=== PATIENT | female | born 1930 | race Caucasian/White ===

== ENCOUNTER 2018-03-24 06:01 | Inpatient (IN) | payer MEDICARE, OTHER | END 2018-04-06 13:35 | disposition hospice, home (50) | LOC: TELE-CENTR 03-27 20:19 → ER 06:01 → TELE 13:04 → TELE-CENTR 14:34 | DX: A41.9 Sepsis, unspecified organism (principal); G92 Toxic encephalopathy; L03.115 Cellulitis of right lower limb; E44.0 Moderate protein-calorie malnutrition; N39.0 Urinary tract infection, site not specified; L97.429 Non-pressure chronic ulcer of left heel and midfoot with unspecified severity; I82.409 Acute embolism and thrombosis of unspecified deep veins of unspecified lower extremity; L03.116 Cellulitis of left lower limb; E87.2 Acidosis; I13.0 Hypertensive heart and chronic kidney disease with heart failure and stage 1 through stage 4 chronic kidney disease, or unspecified chronic kidney disease; C91.10 Chronic lymphocytic leukemia of B-cell type not having achieved remission; R41.82 Altered mental status, unspecified; L89.329 Pressure ulcer of left buttock, unspecified stage; R62.7 Adult failure to thrive; E03.9 Hypothyroidism, unspecified; I73.9 Peripheral vascular disease, unspecified; E83.41 Hypermagnesemia; N18.3 Chronic kidney disease, stage 3 (moderate); B96.20 Unspecified Escherichia coli [E. coli] as the cause of diseases classified elsewhere; I48.2 Chronic atrial fibrillation ==